=== PATIENT | male | born 1975 ===

== ENCOUNTER → 2025-08-04 | Outpatient (CLI) | payer OTHER | END | disposition home or self-care (01) | LOC: TELEHEALTH 08:19 | PROVIDERS: ATTEND Neurological Surgery | DX: M48.02 Spinal stenosis, cervical region (principal) ==

== ENCOUNTER → 2025-09-17 | Outpatient (CLI) | payer OTHER | END | disposition home or self-care (01) | LOC: TELEHEALTH 08:25 | PROVIDERS: ATTEND Neurological Surgery | DX: M48.02 Spinal stenosis, cervical region (principal); M47.812 Spondylosis without myelopathy or radiculopathy, cervical region; R20.0 Anesthesia of skin; R20.2 Paresthesia of skin ==